=== PATIENT | male | born 1965 | race Caucasian/White ===

== ENCOUNTER 2022-06-30 09:15 | Emergency (ER) | payer BC ==
[2022-06-30 10:15] LABS: CHLORIDE,CL 103 mmol/L (98-107); SODIUM,NA 143 mmol/L (136-145)
[2022-06-30 10:16] LABS: ANION GAP 15.1 mmol/L (5-15); ESTIMATED GFR 88 mL/min (>=60)
[2022-06-30] MEDS ORDERED: Aspirin 81 MG Tab.Chew PO ONE (10:29)
== END 2022-06-30 11:00 | disposition short-term general hospital (02) ==
LOC: VM.ED 09:15
DX: I20.0 Unstable angina (principal); R77.8 Other specified abnormalities of plasma proteins
CPT/HCPCS: 36415; 71046; 80053; 82550; 83615; 84484; 85025; 93005; 99285; A9270; 93010; 99284